=== PATIENT | male | born 1950 | race Two or more races ===

== ENCOUNTER 2019-05-01 15:41 | Inpatient (IN) | payer OTHER ==
[~2019-05-01] VITALS: Ht 172.7 cm; Wt 95.0 kg
[2019-05-01] MEDS ORDERED: NITROGLYCERIN SINGLE TAB 0.4 MG SL ONE (16:25)
[2019-05-01] MEDS ORDERED: NITROGLYCERIN SINGLE TAB 0.4 MG SL PRN ×2 (16:30→20:00)
[2019-05-01] MEDS ORDERED: SODIUM CHLORIDE FLUSH 10ML SYR IVF ONE (16:30)
[2019-05-01 16:49] LABS: ALBUMIN 4.2 g/dL (3.4-5.0); ANION GAP 7 mmol/L (5-15); BASOPHILS # (AUTO) 0.09 x10^3/uL (0-0.1); BASOPHILS % (AUTO) 2 % (0-1); CHLORIDE 107 mmol/L (98-107); CREATININE 0.95 mg/dL (0.7-1.3); EOSINOPHILS # (AUTO) 0.06 x10^3/uL (0-0.4); EOSINOPHILS % (AUTO) 1 % (1-7); INTERNATIONAL NORMALIZED RATIO 0.97 (0.93-1.1); LYMPHOCYTES # (AUTO) 1.98 x10^3/uL (1-3.4); LYMPHOCYTES % (AUTO) 32 % (22-44); MD NO; MEAN CORPUSCULAR HEMOGLOBIN 28.4 pg (27.5-34.5); MEAN CORPUSCULAR HGB CONC 32.6 g/dL (33.2-36.2); MEAN CORPUSCULAR VOLUME 87.2 fL (81-97); MEAN PLATELET VOLUME 8.1 fL (7.4-10.4); MONOCYTES # (AUTO) 0.61 x10^3/uL (0.2-0.8); MONOCYTES % (AUTO) 10 % (2-9); NEUTROPHILS # (AUTO) 3.37 x10^3/uL (1.8-6.8); NEUTROPHILS % (AUTO) 55 % (42-75); PLATELET COUNT 285 x10^3/uL (130-400); PROTHROMBIN TIME 10.2 Seconds (9.6-11.5); RED BLOOD COUNT 4.66 x10^6/uL (4.38-5.82); RED CELL DISTRIBUTION WIDTH 13.7 % (9.4-14.8)
[2019-05-01 16:53] LABS: TROPONIN I < 0.015 ng/mL (0.000-0.045)
--- NOTE | 2019-05-01 17:44 | NUR ---
Patient is resting comfortably in bed. NAD.
--- NOTE | 2019-05-01 17:51 | NUR ---
PATIENT IN RECHECK
[2019-05-01] MEDS ORDERED: SODIUM CHLORIDE FLUSH 10ML SYR IVF PRN (18:30)
[2019-05-01] MEDS ORDERED: morphine SULFATE 10 MG/ML, 1ML IV PRN (20:00)
[2019-05-01] MEDS ORDERED: NITROGLYCERIN 0.4 MG/SPRAY SL PRN (20:00)
[2019-05-01] MEDS ORDERED: ACETAMINOPHEN 650 MG/20.3 ML UDC PO PRN (20:00)
[2019-05-01] MEDS: HEPARIN 5,000 UNITS/ML, 1ML SQ SCH (20:27)
[2019-05-01] MEDS: SODIUM CHLORIDE FLUSH 10ML SYR IVF SCH (20:28)
[2019-05-01 20:45] VITALS: BP 170/82
[2019-05-01] MEDS ORDERED: ATORVASTATIN 80 MG TABLET PO SCH (21:00)
[2019-05-01 21:42] LABS: CHOLESTEROL, TOTAL 152 mg/dL (140-239); TRIGLYCERIDES 176 mg/dL (50-200); VLDL CHOLESTEROL 35 mg/dL (0-25)
[2019-05-01 21:45] LABS: CHOL/HDL RATIO 2.7; HDL CHOL % 37 % (26-37); HDL CHOLESTEROL (DIRECT) 56 mg/dL (40-60); LDL CHOLESTEROL,CALCULATED 61 mg/dL (54-169); LDL/HDL RATIO 1.1 (0.5-3.0); TROPONIN I < 0.015 ng/mL (0.000-0.045)
[2019-05-01 21:52] LABS: HEMOGLOBIN A1C 4.9 % (4.2-6.3)
[2019-05-01 23:24] LABS: TROPONIN I < 0.015 ng/mL (0.000-0.045)
[2019-05-02 01:06] VITALS: BP 146/83
[2019-05-02 02:20] LABS: TROPONIN I < 0.015 ng/mL (0.000-0.045)
[2019-05-02 04:59] LABS: TROPONIN I < 0.015 ng/mL (0.000-0.045)
[2019-05-02] MEDS: HEPARIN 5,000 UNITS/ML, 1ML SQ SCH ×2 (05:07→11:56)
[2019-05-02] MEDS ORDERED: OMEPRAZOLE 20 MG CAPSULE.DR PO SCH (06:00)
[2019-05-02] MEDS ORDERED: ASPIRIN 325 MG TABLET EC PO SCH (06:00)
[2019-05-02 07:30] VITALS: BP 168/88
[2019-05-02] MEDS: SODIUM CHLORIDE FLUSH 10ML SYR IVF SCH (08:11)
[2019-05-02] MEDS ORDERED: REGADENOSON 0.4 MG/5 ML SYRINGE ONE (08:18)
[2019-05-02] MEDS ORDERED: HYDROCHLOROTHIAZIDE 12.5 MG CAPSULE PO SCH (09:00)
[2019-05-02] MEDS ORDERED: TAMSULOSIN 0.4 MG CAP.ER.24H PO SCH (09:00)
[2019-05-02] MEDS ORDERED: DULOXETINE 30 MG CAPSULE.DR PO SCH (09:00)
[2019-05-02] MEDS ORDERED: LOSARTAN 50MG TABLET PO SCH (09:00)
[2019-05-02 13:01] VITALS: BP 157/81
[2019-05-02] MEDS ORDERED: HYDR12.517 PO (13:49)
[2019-05-02] MEDS ORDERED: DULO30CA2 PO (13:49)
[2019-05-02] MEDS ORDERED: ATOR-2 PO (13:49)
[2019-05-02] MEDS ORDERED: LOSA50TA14 PO (13:49)
[2019-05-02] MEDS ORDERED: Tamsulosin PO (13:49)
== END 2019-05-02 15:53 | DRG 313 ==
LOC: ED 19:33 → EDIP 19:35 → 5SO 20:09
PROVIDERS: ADMIT Internal Medicine; ATTEND Internal Medicine
DX: R07.89 Other chest pain (principal); E78.5 Hyperlipidemia, unspecified; I10 Essential (primary) hypertension; K21.9 Gastro-esophageal reflux disease without esophagitis; N40.0 Benign prostatic hyperplasia without lower urinary tract symptoms; Z77.22 Contact with and (suspected) exposure to environmental tobacco smoke (acute) (chronic); Z79.899 Other long term (current) drug therapy; Z80.3 Family history of malignant neoplasm of breast; Z80.42 Family history of malignant neoplasm of prostate; Z87.891 Personal history of nicotine dependence
CPT/HCPCS: 36415; 71045; 78452; 80048; 80061; 82040; 83036; 83880; 84484; 85025; 85610; 85730; 93005; 93017; G0378; J1644; J2785; A9502; C9898